=== PATIENT | male | born 1990 | race Two or more races ===

== ENCOUNTER 2024-07-03 19:57 | Emergency (ER) | payer MEDICAID, SELFPAY ==
[2024-07-03 19:57] VITALS: BMI 37.6
[2024-07-03 20:49] VITALS: BP 142/76; PULSE 115; RESP 18; TEMP 39.4; O2SAT 98
[2024-07-03 21:29] VITALS: TEMP 39.4
[2024-07-03] MEDS: NAPROXEN 250 MG TABLET 500 MG PO (21:29)
[2024-07-03] MEDS: ACETAMINOPHEN 500 MG TABLET 1000 MG PO (21:29)
[2024-07-03 23:21] VITALS: BP 129/85; PULSE 90; RESP 18; TEMP 36.7; O2SAT 96
[2024-07-03 23:28] VITALS: TEMP 36.7
--- NOTE | 2024-07-03 23:38 | PD.EDURI ---
Upper Respiratory Inf. RME/HPI General Chief Complaint: Flu Like Symptoms Stated Complaint: FLU LIKE SYMPTOMS Time Seen by Provider: 07/03/24 21:12 Arrival date/time: 07/03/24 19:57 33M with no significant PMH presents to ED with several days of cough. Family has similar symptoms. Limitations: no limitations Related Data Previous Rx's ?Medication ?Instructions ?Recorded diphenhydramine HCl 2 % topical 1 applic topical TID PRN itching 01/31/18 gel (Benadryl) #103 mL hydrocortisone 1 % topical cream 1 applic topical BID #14.2 grams 01/31/18 naproxen 500 mg tablet (Naprosyn) 500 mg PO BID #30 tabs 01/07/21 ibuprofen 800 mg tablet 800 mg PO TID PRN pain #30 tabs 01/17/24 Allergies Allergy/AdvReac Type Severity Reaction Status Date / Time No Known Allergies Allergy Verified 07/03/24 19:58 Review of Systems Review of Systems Systems Reviewed: All systems reviewed, normal except as documented Constitutional Constitutional: Reports system reviewed and no additional complaints, except as documented, Denies fever(s) and Denies headache(s) ENT Ears, Nose, Mouth, and Throat: Denies disequilibrium and Denies headache(s) Cardiovascular Cardiovascular: Reports system reviewed and no additional complaints, except as documented, Denies chest pain and Denies dyspnea Respiratory Respiratory: Reports system reviewed and no additional complaints, except as documented, Reports as per HPI, Reports cough and Denies dyspnea Gastrointestinal Gastrointestinal: Reports system reviewed and no additional complaints, except as documented, Denies abdominal pain, Denies nausea and Denies vomiting Neurologic Neurologic: Reports system reviewed and no additional complaints, except as documented, Denies confusion, Denies disequilibrium and Denies headache(s) Psychiatric Psychiatric: Denies confusion Past Medical History Past Medical History NEUROLOGIC: Negative Neurological Disorders CARDIAC: Negative Cardiac Disorders or Congestive Heart Failure RESPIRATORY: Negative Chronic Obstructive Pulmonary Disease (COPD) GASTROINTESTINAL: Negative Gastrointestinal Disorders GENITOURINARY: Negative Genitourinary Disorders or Renal Disease MUSCULOSKELETAL: Negative Musculoskeletal Disorders ENDOCRINE: Negative Endocrine Disorders, Diabetes Mellitus Type 1 or Diabetes Mellitus Type 2 Social History SMOKING STATUS: Never smoker ED Exam General Limitations: Present no limitations General appearance: Present alert and in no apparent distress Head Head exam: Present atraumatic Eye Eye exam: Present normal appearance, PERRL and EOMI ENT ENT exam: Present normal exam, normal oropharynx and mucous membranes moist Neck Neck exam: Present normal inspection, full ROM and trachea midline Chest Chest inspection: Present normal inspection and symmetric chest wall rise Respiratory Respiratory exam: Present normal lung sounds bilaterally Cardiovascular Cardiovascular exam: Present regular rate, normal rhythm and normal heart sounds Abdominal Exam Abdominal exam: Present soft and normal bowel sounds Extremities Exam Extremities exam: Present normal inspection and full ROM Back Exam Back exam: Present normal inspection and full ROM Neurological Exam Neurological exam: Present alert, oriented X3 and CN II-XII intact Psychiatric Psychiatric exam: Present normal affect and normal mood Skin Skin exam: Present warm, dry, intact and normal color Course Quality Measures none Orders Category Date Time Status Bedside Influenza A&B Antigen Test NOW Care 07/03/24 20:55 Completed Acetaminophen Tab [Tylenol ES Tab] Med 07/03/24 21:12 Discontinued 1,000 mg PO X1 ONE Naproxen [Naprosyn] Med 07/03/24 21:12 Discontinued 500 mg PO X1 ONE Vital Signs Vital signs: Vital Signs Temperature 103 F H 07/03/24 20:49 Pulse Rate 115 H 07/03/24 20:49 Respiratory Rate 18 07/03/24 20:49 Blood Pressure 142/76 H 07/03/24 20:49 Pulse Oximetry (%) 98 07/03/24 20:49 Oxygen Delivery Method Room Air 07/03/24 20:49 O2 at 98% on RA and WNLs Upper Respiratory Infection MDM Narrative MDM Narrative:: 33M with no significant PMH presents to ED with several days of cough. Family has similar symptoms. Physical exam reveals clear ENT and lungs. Patient is febrile, but does not appear toxic. Swabs neg. Likely viral URI. Software Test Specialist given. Patient data External records reviewed:: [facility] previous records Clinical information provided by:: patient Social determinants that could affect healthcare access:: none Patient has the following chronic illnesses:: none How is presenting disease/condition affected by chronic disease/condition?: no chronic disease Evaluation data The following diagnostics were reviewed and interpreted by me:: lab results Lab and/or radiology exams considered but not ordered:: ordered Interpretation Summary: above Medications / Prescriptions Medications or Prescriptions considered but not ordered:: ordered Medication administrations:: Medication Administration History Discontinued Medications Acetaminophen (Acetaminophen 500 Mg Tablet) 1,000 mg PO X1 ONE Stop: 07/03/24 21:13 Last Admin: 07/03/24 21:29 Dose: 1,000 mg Documented By: FLORIN Naproxen (Naproxen 250 Mg Tablet) 500 mg PO X1 ONE Stop: 07/03/24 21:13 Last Admin: 07/03/24 21:29 Dose: 500 mg Documented By: FLORIN above Consultations Consultation(s) initiated? (list below): No Diagnosis Upper Respiratory Differential Diagnosis: upper respiratory infection, croup, otitis media, sinusitis, viral infection, bronchitis, influenza and pharyngitis Most likely diagnosis given after review of the tests above:: URI Admission Indicated Admission indicated?: not indicated Admission Request Was there a request for admission?: No Disposition Plan Disposition Plan: Discharge Discharge Attestation Discharge Attestation: The patient and all family members were given an opportunity to ask questions and understood the discharge instructions. Discharge instructions specifically effects, indications for sooner follow up or return to the emergency department, and the expected course of current diagnosis. Patient condition: Stable Discharge Plan Plan Patient Disposition: HOME (Self Care) Disposition Comment: Stable Prescriptions/Referrals Prescriptions/Med Rec: No Action diphenhydramine HCl [Benadryl] 2 % gel 1 applic TOP TID PRN (Reason: itching) Qty: 103 0RF hydrocortisone 1 % cream 1 applic TOP BID Qty: 14.2 0RF Rx Instructions: x 10 days naproxen [Naprosyn] 500 mg tablet 500 mg PO BID Qty: 30 0RF ibuprofen 800 mg tablet 800 mg PO TID PRN (Reason: pain) Qty: 30 0RF Referrals: No Primary/Family,Physician [Primary Care Provider] - In 1 week Problem List Clinical Impression: Upper respiratory infection Patient/Caregiver Discharge Instructions Additional Instructions: Please follow-up with PCP within 24-48 hours and return immediately if symptoms worsen. Ibuprofen/Tylenol can be used simultaneously for greater fever/pain control. Benadryl is good for cough, congestion, and sleep. Print Language: Turkmen Stand Alone Forms: Patient Portal Info Letter PA/LAB NURSE Supervising Physician FRANCINE/LUIS Supervising Physician: Dr. Turpin
== END 2024-07-03 23:34 | disposition home or self-care (01) ==
PROVIDERS: Emergency Provider Emergency Medicine
DX: J06.9 Acute upper respiratory infection, unspecified (principal)
CPT/HCPCS: 87400; 99283; A9270

== ENCOUNTER 2025-03-10 22:02 | Emergency (ER) | payer MEDICAID, SELFPAY ==
[2025-03-10 22:03] VITALS: BMI 38.0
[2025-03-10 22:22] VITALS: BP 149/95; PULSE 87; RESP 18; TEMP 36.7; O2SAT 97
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
== END 2025-03-10 23:44 | disposition home or self-care (01) ==
PROVIDERS: Emergency Provider Emergency Medicine
DX: S00.93XA Contusion of unspecified part of head, initial encounter (principal); S10.93XA Contusion of unspecified part of neck, initial encounter; R07.9 Chest pain, unspecified; S40.011A Contusion of right shoulder, initial encounter; V49.88XA Car occupant (driver) (passenger) injured in other specified transport accidents, initial encounter
CPT/HCPCS: 70450; 71046; 72125; 73030; 99284